=== PATIENT | female | born 2000 | race Caucasian/White ===

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

== ENCOUNTER 2018-06-08 18:59 | Emergency (ER) | payer OTHER ==
[~2018-06-08] VITALS: Ht 165.1 cm; Wt 50.4 kg
[~2018-06-08 18:59] MED LIST changes: +ATARAX,VISTARIL25 MG PO
[2018-06-08 19:53] VITALS: BP 125/70
== END 2018-06-08 22:02 | disposition left against medical advice (07) ==
LOC: EME 18:59
DX: J02.9 Acute pharyngitis, unspecified (principal); K12.0 Recurrent oral aphthae
CPT/HCPCS: 87651 90; 99281; 99284